=== PATIENT | female | born 1945 | race African-American/Black ===

== ENCOUNTER 2020-07-29 09:01 | Inpatient (IN) ==
[2020-07-29] MEDS ORDERED: MIDAZOLAM 2 MG/2 ML VIAL ONE (11:46)
[2020-07-29] MEDS ORDERED: ROCURONIUM 50 MG/5 ML VIAL IV ONE (11:46)
[2020-07-29] MEDS ORDERED: fentaNYL 100 MCG/2 ML VIAL ONE (12:40)
[2020-07-29] MEDS ORDERED: METOPROLOL TARTRATE 5 MG/5 ML VIAL IV ONE (12:58)
[2020-07-29] MEDS ORDERED: SEVOFLURANE 1 UNIT/15 MINUTE INH ONE (12:58)
[2020-07-29] MEDS ORDERED: HYDROmorphone 2 MG/1 ML VIAL IV PRN (14:57)
[2020-07-29] MEDS ORDERED: ONDANSETRON 4 MG/2 ML VIAL IV PRN (14:57)
[2020-07-29] MEDS ORDERED: PROMETHAZINE 25 MG/1 ML VIAL IM PRN (14:57)
[2020-07-29] MEDS ORDERED: DEXTROSE 50% 25 GM/50 ML VIAL IV PRN (15:21)
[2020-07-29] MEDS ORDERED: GLUCAGON 1 MG VIAL IM PRN (15:21)
[2020-07-29] MEDS: METOPROLOL TARTRATE 50 MG TABLET PO SCH ×2 (15:30→20:28)
[2020-07-29] MEDS: LACTATED RINGERS 1,000 ML IV SCH ×2 (15:30→23:48)
[2020-07-29] MEDS: INSULIN REGULAR 100 UNIT/ML SUBCUT SCH ×2 (19:39→23:52)
[2020-07-29 23:21] LABS: Amorphous Crystals,Urine Few /HPF (Few); Bilirubin,Urine Negative (Negative); Blood, Urine Negative (Negative); Calcium Oxalate Crystals,Urine Occasional /HPF (Few); Glucose,Urine (UA) 150 mg/dL (Negative); Ketones,Urine Negative (Negative); Mucus,Urine Occasional /LPF (Occasional); Nitrite,Urine Negative (Negative); Protein,Urine Negative; RBC,Urine 18 /HPF (0-4); Squamous Epithelial Cell,Urine Occasional /HPF (0-10); Urine Appearance Slightly Hazy (Clear); Urine Color Yellow (Yellow); Urine Specific Gravity 1.015 (1.001-1.035); Urine Urobilinogen < 2.0 EU/DL (0.2-1.0)
[2020-07-30] MEDS: INSULIN REGULAR 100 UNIT/ML SUBCUT SCH (06:52)
[2020-07-30 07:00] LABS: ABG Base Excess 4.4 MMOL/L (-2.5-2.5); ABG HCO3 28.4 MMOL/L (20-26); ABG Oxygen Saturation 99.3 % (95-100); ABG PCO2 41.2 MM HG (35-48); ABG PH 7.452 (7.35-7.45); ABG TCO2 26.2 MMOL/L (23-27); Allen Test Positive; Pt O2 Delivery Device Ventilator
[2020-07-30] MEDS ORDERED: ENOXAPARIN 40 MG/0.4 ML SYRINGE SUBCUT SCH (08:00)
[2020-07-30] MEDS: LACTATED RINGERS 1,000 ML IV SCH (08:19)
[2020-07-30] MEDS: METOPROLOL TARTRATE 50 MG TABLET PO SCH (08:21)
[2020-07-30] MEDS ORDERED: MULTIVITAMIN LIQUID (CENTRUM) 60 ML BOTTLE PO SCH (09:00)
== END 2020-07-30 11:00 | DRG 4 ==
LOC: N.OR 09:01 → N.ICU 09:04
PROVIDERS: ADMIT Surgery; ATTEND Surgery